=== PATIENT | male | born 1960 | race Caucasian/White ===

== ENCOUNTER → 2025-05-19 10:30 | Outpatient (BNVA) | payer BC, SELFPAY | PROVIDERS: Visit Provider Family Medicine | DX: Z12.5 Encounter for screening for malignant neoplasm of prostate (principal); R53.82 Chronic fatigue, unspecified; N52.9 Male erectile dysfunction, unspecified; N40.1 Benign prostatic hyperplasia with lower urinary tract symptoms; N13.8 Other obstructive and reflux uropathy; R79.89 Other specified abnormal findings of blood chemistry; E29.1 Testicular hypofunction; E55.9 Vitamin D deficiency, unspecified | CPT/HCPCS: 80053; 80061; 82306; 82607; 82728; 83036; 83550; 84403; 84439; 84443; 85025; G0103 ==